=== PATIENT | female | born 1950 | race Caucasian/White ===

== ENCOUNTER 2018-03-29 09:20 | Emergency (ER) | payer MEDICARE ==
[~2018-03-29] VITALS: Ht 157.5 cm; Wt 113.4 kg
[~2018-03-29 09:20] MED LIST: DILAUDID4 MG PO; LEVAQUIN500 MG PO; LISINOPRIL10 MG PO; MORPHINE SULFAT15 M1 PO; PHENERGAN SUPP25 MG PR; PREDNISONE20 MG PO; RANITIDINE HCL300 MG PO; ULTRAM 50MG50 MG PO; VOLTAREN75 MG PO; ZANTAC300 MG PO; ZOFRAN ODT4 MG PO
--- OUTSIDE RECORDS SUMMARY | 2018-03-29 09:25 | XMS REPORT ---
Author Author [facility] Address Unknown Phone Unavailable Care Team Providers Care Litigator Name Role Phone Seb LOBATO Unavailable Unavailable Payers Payer Name Policy Type Policy Number Effective Date Expiration Date Problems This patient has no known problems. Allergies, Adverse Reactions, Alerts Allergy Name Allergy Type Status Severity Reaction(s) Onset Date Inactive Date Treating Clinician Comments Iodinated Contrast Media - IV Dye DA Active 2012-03-22 00:00:00 codeine DA Active SV 2012-03-22 00:00:00 Medications This patient has no known medications. Results Test Description Test Time Test Comments Text Results Atomic Results Result Comments CHEST SINGLE (PORTABLE) [facility] [address] [place] [address] Patient Name: YESICA HICKEY MR #: [id number] : 1950 Age/Sex: 66/F Req #: [id number] Adm Physician: Ordered by: JAYLIN LOBATO MD Report #: [id number] Location: ER Room/Bed: Procedure: [id number] DX/CHEST SINGLE (PORTABLE) Exam Date: 02/23/17 Exam Time: 1510 REPORT STATUS: Signed PROCEDURE: CHEST SINGLE (PORTABLE) COMPARISON: Chest x-ray , CT chest 05/26/12. INDICATIONS: COUGH FINDINGS: The cardiomediastinal silhouette remains enlarged. This is partly due to prominent circumferential pericardial fat and a prominent right pericardial fat pat pad. Stable eventration right diaphragm. No hilar lymphadenopathy. The pulmonary vascular markings are normal. Haziness of the base of the right lung is stable suggestive of chronic atelectasis. Left lung is clear. No large effusions. No pneumothorax. Bones: A screw in the right humeral head is stable in position and is intact. [place] in the left humeral head is stable. There are no focal osseous lesions. CONCLUSION: Stable cardiomegaly without vascular congestion. 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 No new cardiopulmonary process. Dictated by: Norberto Sanchez M.D. on 02/23/2017 at 15:54 Electronically approved by: Norberto Sanchez M.D. on 02/23/2017 at 15:54 Dictated By: NORBERTO SANCHEZ MD [id number] Transcribed By: JULY on 02/23/17 0606 COPY TO: JAYLIN LOBATO MD
[2018-03-29] MEDS ORDERED: ONDANSETRON HCL INJ 2 MG/ML VIAL IV STA (09:56)
[2018-03-29] MEDS ORDERED: METOCLOPRAMIDE HCL 10 MG/2ML VIAL IV ONE (10:00)
[2018-03-29] MEDS ORDERED: SODIUM CHLORIDE 0.9% 1000ML 1,000 ML IV ONE (10:00)
[2018-03-29] MEDS ORDERED: METOPROLOL TARTRATE INJ 1 MG/ML VIAL IV ONE (10:15)
[2018-03-29] MEDS ORDERED: HALOPERIDOL LACTATE 5 MG/ML VIAL IV ONE (12:10)
[2018-03-29 13:14] VITALS: BP 126/75
== END 2018-03-29 13:20 | disposition home or self-care (01) ==
LOC: ER 09:20
DX: R11.2 Nausea with vomiting, unspecified (principal); F11.23 Opioid dependence with withdrawal; Z85.42 Personal history of malignant neoplasm of other parts of uterus
CPT/HCPCS: 99284; J1630; J2405; J2765; J7030

== ENCOUNTER 2019-07-01 07:16 | Emergency (ER) | payer MEDICARE ==
[~2019-07-01] VITALS: Ht 157.5 cm; Wt 113.4 kg
[2019-07-01] MEDS ORDERED: KETOROLAC TROMETHAMINE 30 MG/ML VIAL IM STA (07:39)
[2019-07-01] MEDS ORDERED: DIAZEPAM 2 MG TAB PO ONE (07:45)
[2019-07-01] MEDS ORDERED: KETOROLAC TROMETHAMINE 60 MG/2 ML VIAL ONE (07:47)
[2019-07-01] MEDS ORDERED: DIAZEPAM 5 MG TAB ONE (07:48)
--- NOTE | 2019-07-01 09:45 | Diagnostic Imaging Report ---
EXAM: Lumbar spine radiographs-5 views; AP radiograph of the pelvis-1 view; left hip radiographs-2 views; right hip radiographs-2 views INDICATION: Hip pain. COMPARISON: None FINDINGS: BONES: Diffuse osteopenia. No evidence of dislocation. Minimal retrolisthesis of L2 on L3. No acute displaced fractures. There is a mild irregular contour of the right acetabulum, with limited evaluation secondary to obliquity of frontal radiograph. Vertebral body heights are preserved. DISCS: Mild multilevel degenerative disc changes, most pronounced at L4-L5 and L5-S1. JOINTS: Moderate facet degenerative changes at L4-L5 and L5-S1. Mild degenerative changes of bilateral hips, pubic symphysis, and sacroiliac joints. SOFT TISSUES: Atherosclerotic vascular calcifications of the abdominal aorta. IMPRESSION: No evidence of acute displaced fracture. Mild irregular contour of the right acetabulum, possibly remote trauma versus nondisplaced fracture. Recommend pelvic CT for further evaluation. Degenerative changes as above. Signed by: Dr. Alexandria Castillo MD on 07/01/2019 9:43 AM
[2019-07-01] MEDS ORDERED: TRAMADOL HCL 50 MG TAB PO NR (10:15)
--- NOTE | 2019-07-01 11:33 | Diagnostic Imaging Report ---
EXAM: CT Pelvis WITHOUT contrast INDICATION: Fall, query fracture. COMPARISON: None. TECHNIQUE: Pelvis were scanned utilizing a multidetector helical scanner from the iliac crest to the pubic symphysis without administration of IV contrast. Coronal and sagittal reformations were obtained. Routine protocol was performed. IV CONTRAST: None. ORAL CONTRAST: None. RADIATION DOSE: Total DLP: 335.5 mGy*cm Estimated effective dose: (DLP x 0.015 x size factor) mSv COMPLICATIONS: None FINDINGS: BONES: No evidence of acute fracture or malalignment. No CT correlate to the right acetabular irregularity noted on prior radiograph, likely artifactual. Mild degenerative changes of bilateral hips and pubic symphysis. Partially seen mild degenerative changes at L5-S1. SOFT TISSUES: No acute findings. Small fat-containing of local hernia. LINES and TUBES: None. GI TRACT: Partially visualized. No abnormal distention, wall thickening, or evidence of bowel obstruction. PELVIC ORGANS/BLADDER: Unremarkable. LYMPH NODES: No lymphadenopathy. PERITONEUM / RETROPERITONEUM: No free air or fluid. IMPRESSION: No evidence of fracture or malalignment. Signed by: Dr. Alexandria Castillo MD on 07/01/2019 11:31 AM
[2019-07-01] MEDS ORDERED: HYDROCODONE/APAP 10MG-325MG TAB PO NR (12:15)
== END 2019-07-01 12:33 | disposition home or self-care (01) ==
LOC: ER 07:16
DX: M54.5 Low back pain (principal); M25.552 Pain in left hip; M25.551 Pain in right hip; G89.29 Other chronic pain; B02.9 Zoster without complications; Z85.42 Personal history of malignant neoplasm of other parts of uterus
CPT/HCPCS: 72110; 72192; 73522; 99284; J1885

== ENCOUNTER 2019-07-18 16:00 | Emergency (ER) | payer MEDICARE ==
[~2019-07-18] VITALS: Ht 157.5 cm; Wt 113.4 kg
[2019-07-18] MEDS ORDERED: SODIUM CHLORIDE 0.9% 1000ML 500 ML IV STA (16:18)
[2019-07-18] MEDS ORDERED: MORPHINE SULFATE 2 MG/ML SYR 1ML IV STA (16:18)
[2019-07-18] MEDS ORDERED: ONDANSETRON HCL INJ 2MG/ML 2ML 2 MG/ML VIAL IV STA ×2 (16:18→19:19)
[2019-07-18] MEDS ORDERED: SODIUM CHLORIDE 0.9% 1000ML 1,000 ML IV STA (16:18)
[2019-07-18 16:41] LABS: BASOPHILS # (AUTO) 0.1 (0.0-0.1); BASOPHILS % 0.7 % (0.0-1.0); EOSINOPHILS # (AUTO) 0.1 (0.0-0.4); EOSINOPHILS % 2.1 % (0.0-6.0); HEMATOCRIT 42.1 % (34.2-44.1); HEMOGLOBIN 13.7 g/dL (12.0-16.0); LYMPHOCYTES # (AUTO) 1.8 (1.0-3.2); MEAN CORPUSCULAR HEMOGLOBIN 30.8 pg (28-32); MEAN CORPUSCULAR HGB CONC 32.5 g/dL (31-35); MEAN CORPUSCULAR VOLUME 94.6 fL (81-99); MONOCYTES # (AUTO) 0.7 (0.2-0.8); MONOCYTES % 9.9 % (4.4-11.3); PLATELET COUNT 338 x10e3/uL (140-360); RED BLOOD COUNT 4.45 x10e6/uL (3.6-5.1); RED CELL DISTRIBUTION WIDTH 14.3 % (11.7-14.4)
[2019-07-18] MEDS ORDERED: FAMOTIDINE 20 MG/2 ML VIAL IV ONE (16:45)
[2019-07-18 16:52] LABS: INR 0.92; PARTIAL THROMBOPLASTIN TIME 29.5 seconds (23.8-35.5); PROTHROMBIN TIME 12.9 seconds (11.9-14.5)
[2019-07-18 17:00] LABS: ALANINE AMINOTRANSFERASE 9 IU/L (0-55); ALBUMIN 3.6 g/dL (3.5-5.0); ALKALINE PHOSPHATASE 76 IU/L (40-150); BLOOD UREA NITROGEN 8 mg/dL (7-26); BUN/CREATININE RATIO 10 (6-25); CALCIUM 8.9 mg/dL (8.4-10.2); CARBON DIOXIDE 28 mmol/L (22-29); CHLORIDE 100 mmol/L (98-107); CREATINE KINASE 54 IU/L (29-168); CREATININE, SERUM 0.79 mg/dL (0.57-1.11); EST GLOMERULAR FILTRATION RATE > 60 ML/MIN (60-); GLUCOSE 110 mg/dL (74-118); LIPASE 7 U/L (8-78); MAGNESIUM 1.9 MG/DL (1.3-2.1); SODIUM 139 mmol/L (136-145)
--- NOTE | 2019-07-18 17:28 | Diagnostic Imaging Report ---
EXAM: CHEST SINGLE (PORTABLE) DATE: 07/18/2019 4:18 PM INDICATION: Abdominal pain COMPARISON: None Impression: The trachea is midline. There is increased opacity present within the right lower lung zone suggestive of atelectasis. An underlying airspace process cannot be entirely excluded. There is no evidence for large focal consolidation, pneumothorax, or significant pleural effusion. The cardiomediastinal silhouette appears magnified by technique but otherwise unremarkable. The pulmonary vasculature is not engorged. Partially visualized cervical fusion hardware noted. Post surgical changes noted of the bilateral shoulders. No acute osseous abnormality is identified. Signed by: Dr. Reimgio Figueroa MD on 07/18/2019 5:25 PM
--- NOTE | 2019-07-18 18:13 | Diagnostic Imaging Report ---
EXAMINATION: CT of the abdomen and pelvis without contrast. TECHNIQUE: Spiral CT images of the abdomen and pelvis were performed from the lung bases to the lesser trochanters. No intravenous contrast was given a history of iodine allergy. Although oral Redicat was given, the patient was unable to drink but a small amount Coronal and sagittal reformatted images were obtained. COMPARISON: CT pelvis 07/01/2019 CLINICAL HISTORY:Abdominal pain, shingles, nausea and vomiting for 2 weeks DISCUSSION: ABSENCE OF INTRAVENOUS CONTRAST DECREASES SENSITIVITY FOR DETECTION OF FOCAL LESIONS AND VASCULAR PATHOLOGY. ABDOMEN/PELVIS: Exam limited by patient's body habitus. LOWER THORAX: Unremarkable. HEPATOBILIARY: 5 mm hypodense lesion in hepatic segment which is too small to characterize but likely represents a small cyst. No other focal lesions. No intrahepatic ductal dilation. Mild dilation of the common bile duct, which measures 8-9 mm at the marci hepatis. No radiopaque intraluminal filling defects. GALLBLADDER: Radiopaque calculi measuring 8-9 mm are noted in the dependent portion of the gallbladder lumen. No wall thickening. SPLEEN: No splenomegaly. PANCREAS: No focal masses or ductal dilatation. Pancreatic fatty replacement. ADRENALS: No adrenal nodules. KIDNEYS/URETERS: No renal or ureteral calculi, hydronephrosis or obstruction. Well-circumscribed fluid density structures in bilateral renal sinuses, with the largest measuring 2.4 cm on the right and 2.3 cm on the left, consistent with peripelvic cysts. PELVIC ORGANS/BLADDER: Bladder is unremarkable. No adnexal masses. PERITONEUM/RETROPERITONEUM: No free air or fluid. LYMPH NODES: No intra-abdominal,retroperitoneal, pelvic or inguinal lymphadenopathy. VESSELS: Atherosclerotic calcification of the abdominal aorta. GI TRACT: Mild circumferential wall thickening involving the cecum (for example axial image 66) with few diverticula. Minimal surrounding inflammatory changes. The rest of the bowel shows no wall thickening. No bowel dilation or obstruction. No foci of extraluminal air or adjacent well-defined fluid collections Appendix is not visualized. BONES AND SOFT TISSUES: No aggressive lytic lesions. Multilevel degenerative disks in the lower thoracic and lumbosacral spine, worse at L5-S1. Prominent fat pannus IMPRESSION: 1. Findings suggestive of mild uncomplicated cecal diverticulitis. Appendix is not identified. 2. Cholelithiasis, without CT evidence of cholecystitis. 3. Mild dilation of the common bile duct. No intrahepatic biliary ductal dilation or radiopaque intraluminal filling defects are identified. MRI abdomen/MRCP may be obtained if there is clinical concern for choledocholithiasis. Signed by: Dr. Lonnie Otero M.D. on 07/18/2019 6:10 PM
[2019-07-18 18:34] LABS: BILIRUBIN,URINE NEGATIVE (NEGATIVE); CLARITY,URINE SL CLOUDY (CLEAR); COLOR,URINE STRAW (YELLOW); KETONES,URINE NEGATIVE (NEGATIVE); LEUKOCYTE ESTERASE ,URINE TRACE (NEGATIVE); NITRITE,URINE NEGATIVE (NEGATIVE); PROTEIN,URINE DIPSTICK NEGATIVE (NEGATIVE); URINE UROBILINOGEN 0.2 mg/dL (0.2 - 1)
[2019-07-18 18:54] LABS: BACTERIA,URINE MODERATE /HPF; EPITHELIAL CELLS,URINE MANY /LPF; RBC,URINE 0-5 /HPF (0-5)
[2019-07-18] MEDS ORDERED: METRONIDAZOLE 500 MG TAB PO ONE (19:15)
[2019-07-18] MEDS ORDERED: LEVOFLOXACIN 250 MG TAB PO ONE (19:15)
[2019-07-18] MEDS ORDERED: LEVOFLOXACIN 500 MG TAB PO ONE (19:15)
[2019-07-18] MEDS ORDERED: HYDROMORPHONE 1MG/1ML INJ IV STA (19:19)
[2019-07-18] MEDS ORDERED: DIAZEPAM 5 MG TAB PO ONE (19:30)
[2019-07-18] MEDS ORDERED: DIAZEPAM 5 MG TAB PO PRN (19:30)
[2019-07-18] MEDS ORDERED: DIAZEPAM 2 MG TAB PO ONE (19:30)
== END 2019-07-18 20:11 | disposition home or self-care (01) ==
LOC: ER 16:05
DX: R10.12 Left upper quadrant pain (principal); R10.32 Left lower quadrant pain
CPT/HCPCS: 36415; 71045; 74176; 80053; 81001; 82550; 82553; 83690; 83735; 83880; 84484; 85025; 85610; 85730; 87086; 93005; 99284; J1170; J2270; J2405; J7030

== ENCOUNTER 2020-08-15 09:32 | Emergency (ER) | payer MEDICARE ==
[~2020-08-15] VITALS: Ht 157.5 cm; Wt 113.4 kg
[2020-08-15] MEDS ORDERED: HYDROCODONE/APAP 5MG-325MG TAB PO STA (09:54)
[2020-08-15] MEDS ORDERED: HYDROCODON-ACE1 EA11 PO (12:39)
[2020-08-15] MEDS ORDERED: ACYCLOVIR800 MG PO (12:39)
[2020-08-15 13:29] VITALS: BP 154/71
== END 2020-08-15 13:00 | disposition home or self-care (01) ==
LOC: ER 09:38
DX: N76.0 Acute vaginitis (principal); Z85.42 Personal history of malignant neoplasm of other parts of uterus
CPT/HCPCS: 76830; 76856; 99283

== ENCOUNTER 2020-10-01 07:29 | Emergency (ER) | payer MEDICARE ==
[~2020-10-01] VITALS: Ht 157.5 cm; Wt 113.4 kg
[~2020-10-01 07:29] MED LIST changes: +ACYCLOVIR800 MG PO; +HYDROCODON-ACE1 EA11 PO
[2020-10-01] MEDS ORDERED: HYDROCODON-ACE1 EA12 PO (07:53)
[2020-10-01] MEDS ORDERED: HYDROCODON-ACE1 EA11 PO (08:13)
== END 2020-10-01 08:24 | disposition home or self-care (01) ==
LOC: ER 07:50
DX: G89.3 Neoplasm related pain (acute) (chronic) (principal); R42 Dizziness and giddiness; Z85.42 Personal history of malignant neoplasm of other parts of uterus
CPT/HCPCS: 99283

== ENCOUNTER 2020-12-10 23:33 | Emergency (ER) | payer MEDICARE ==
[~2020-12-10] VITALS: Ht 157.5 cm; Wt 113.4 kg
[~2020-12-10 23:33] MED LIST changes: +HYDROCODON-ACE1 EA12 PO
[2020-12-11] MEDS ORDERED: ONDANSETRON HCL INJ 2MG/ML 2ML 2 MG/ML VIAL ONE (00:31)
[2020-12-11] MEDS ORDERED: SODIUM CHLORIDE 0.9% 1000ML 1,000 ML ONE (00:31)
[2020-12-11 00:42] LABS: BASOPHILS % 0.4 % (0.0-1.0); EOSINOPHILS # (AUTO) 0.2 (0.0-0.4); EOSINOPHILS % 1.9 % (0.0-6.0); HEMATOCRIT 36.2 % (34.2-44.1); HEMOGLOBIN 11.4 g/dL (12.0-16.0); LYMPHOCYTES # (AUTO) 1.3 (1.0-3.2); LYMPHOCYTES % 14.9 % (18.0-39.1); MEAN CORPUSCULAR HEMOGLOBIN 31.3 pg (28-32); MEAN CORPUSCULAR HGB CONC 31.5 g/dL (31-35); MEAN CORPUSCULAR VOLUME 99.5 fL (81-99); MONOCYTES # (AUTO) 0.9 (0.2-0.8); MONOCYTES % 10.7 % (4.4-11.3); NEUTROPHILS # (AUTO) 5.9 (2.1-6.9); NEUTROPHILS % 69.6 % (38.7-80.0); PLATELET COUNT 258 x10e3/uL (140-360); RED BLOOD COUNT 3.64 x10e6/uL (3.6-5.1); RED CELL DISTRIBUTION WIDTH 13.2 % (11.7-14.4)
[2020-12-11 00:49] LABS: INR 0.99; PARTIAL THROMBOPLASTIN TIME 34.3 seconds (23.8-35.5); PROTHROMBIN TIME 13.7 seconds (11.9-14.5)
[2020-12-11 01:00] LABS: ALBUMIN 2.4 g/dL (3.5-5.0); ALBUMIN/GLOBULIN RATIO 0.6 (0.8-2.0); ANION GAP 13.7 mmol/L (8-16); CALCIUM 8.6 mg/dL (8.4-10.2); CREATININE, SERUM 0.73 mg/dL (0.57-1.11); POTASSIUM 3.7 mmol/L (3.5-5.1)
[2020-12-11] MEDS ORDERED: PROMETHAZINE HCL (IM) 25 MG/ML VIAL IM ONE (03:03)
[2020-12-11 05:04] VITALS: BP 132/65
== END 2020-12-11 03:00 | disposition home or self-care (01) ==
LOC: ER 12-11 00:02
DX: R11.2 Nausea with vomiting, unspecified (principal); R19.7 Diarrhea, unspecified; R10.84 Generalized abdominal pain; A05.9 Bacterial foodborne intoxication, unspecified
CPT/HCPCS: 36415; 71045; 74176; 80053; 82150; 83690; 85025; 85610; 85730; 99284; J2405; J2550; J7030